=== PATIENT | male | born 1940 | race Two or more races ===

== ENCOUNTER 2018-07-10 10:08 | Emergency (ER) | payer OTHER ==
[~2018-07-10] VITALS: Ht 172.7 cm; Wt 74.4 kg
[~2018-07-10 10:08] MED LIST: COZAAR25 MG; METFORMIN HCL1000 MG; SORIATANE25 MG; ZOCOR5 MG; [UNRECOGNIZED DRUG - OTHER]
[2018-07-10] MEDS ORDERED: PLAVIX75 MG PO (10:36)
[2018-07-10] MEDS ORDERED: NORVASC2.5 M1 PO (10:36)
[2018-07-10] MEDS ORDERED: HUMULIN R500 UNIT/2 (10:39)
[2018-07-10] MEDS ORDERED: HUMULIN N100 UNIT/2 (10:39)
== END 2018-07-10 20:42 | disposition home or self-care (01) ==
LOC: ER 10:08
DX: K59.09 Other constipation (principal); R10.31 Right lower quadrant pain; R10.32 Left lower quadrant pain

== ENCOUNTER 2019-11-08 10:20 | Outpatient (CLI) | payer OTHER ==
[~2019-11-08 10:20] MED LIST changes: +HUMULIN N100 UNIT/2; +HUMULIN R500 UNIT/2; +NORVASC2.5 M1 PO; +PLAVIX75 MG PO
== END 2019-11-08 11:22 | disposition home or self-care (01) ==
LOC: NUCLEAR 10:20
DX: I11.0 Hypertensive heart disease with heart failure (principal); E11.9 Type 2 diabetes mellitus without complications; G47.33 Obstructive sleep apnea (adult) (pediatric); I73.9 Peripheral vascular disease, unspecified; J44.9 Chronic obstructive pulmonary disease, unspecified